=== PATIENT | female | born 2000 | race Caucasian/White ===

== ENCOUNTER 2023-05-27 21:18 | Emergency (ER) | payer OTHER, SELFPAY ==
[2023-05-27] VITALS (11 sets, daily range): BP systolic 119–143; BP diastolic 65–97; PULSE 101–108; RESP 18–20; TEMP 36.6; O2SAT 97–100
--- NOTE | 2023-05-27 21:26 | CRLHL7_ITS ---
For Patients: As a result of the Century Cures Act, medical imaging exams and procedure reports are released immediately into your electronic medical record. You may view this report before your referring provider. If you have questions, please contact your health care provider. INDICATION: Altered mental status. Hit head. Patient now nonverbal. COMPARISON: None available. TECHNIQUE: CT examination of the cervical spine is performed without contrast using spiral technique. 1.5 mm thick axial, and 2 mm thick sagittal and coronal reconstructions were made. Please note that all CT scans at this facility use dose modulation, iterative reconstruction, and/or weight-based dosing when appropriate to reduce radiation dose to as low as reasonably achievable. FINDINGS: : There is no sign of fracture or subluxation. The cervical vertebral bodies and intervertebral discs are normal in height and are in anatomic alignment. There is no sign of prevertebral soft tissue swelling. The airway structures are normal in appearance. The visualized skull base is normal in appearance. The visualized inferior brain is normal in appearance for the patient`s age. The apices of the lungs are clear. IMPRESSION: Normal CT of the cervical spine with no sign of acute injury. Please note that all CT scans at this facility use dose modulation, iterative reconstruction, and/or weight-based dosing when appropriate to reduce radiation dose to as low as reasonably achievable. Dictated by Lester Franco MD @ 05/27/2023 10:58:03 PM (Electronically Signed)
--- NOTE | 2023-05-27 21:26 | CRLHL7_ITS ---
For Patients: As a result of the Century Cures Act, medical imaging exams and procedure reports are released immediately into your electronic medical record. You may view this report before your referring provider. If you have questions, please contact your health care provider. INDICATION: Altered mental status, patient now nonverbal. Hit head. COMPARISON: None available. TECHNIQUE: CT examination of the head was performed with 3 mm thick axial and 2 mm thick coronal and sagittal sections without intravenous contrast. Images were obtained from the vertex of the skull through the skull base, and I examined the images with the brain and bone windows. Please note that all CT scans at this facility use dose modulation, iterative reconstruction, and/or weight-based dosing when appropriate to reduce radiation dose to as low as reasonably achievable. FINDINGS: : The brain is normal in appearance for the patient`s age on today`s study, with no sign of mass lesion, mass effect, hemorrhage, or edema. The ventricles and sulci are normal in appearance for the patient`s age. The visualized portions of the orbits are normal in appearance. The visualized portions of the paranasal sinuses and mastoids are clear. The osseous structures are normal in their appearance with no sign of abnormality in the skull base or calvarium. IMPRESSION: No sign of closed-head injury. Normal noncontrast CT of the head for the patient`s age. Please note that all CT scans at this facility use dose modulation, iterative reconstruction, and/or weight-based dosing when appropriate to reduce radiation dose to as low as reasonably achievable. Dictated by Lester Franco MD @ 05/27/2023 10:56:37 PM (Electronically Signed)
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
[2023-05-27] MEDS: ONDANSETRON 2 MG/ML inj 4 MG IVP (22:25)
[2023-05-27] MEDS: 0.9 % SODIUM CHLORIDE 1000 ml 1,000 ML IV (22:25)
--- NOTE | 2023-05-27 22:25 | ED.NURSE ---
Rfp Writer in room to complete assessments, start IV, and administer medications after pt returns from CT. Pt has eyes closed and does not respond to narrative writer when narrative writer addresses pt. Rfp Writer places tourniquet on pt's arm to identify vein for IV insertion. Pt starts squeezing hand to pump blood. Pt then opens eyes and states, 22. Rfp Writer confirms to pt that she is using a 22 g IV needle. Pt then goes back to limp arms and closing eyes. Pt brings up other hand and starts miming 2 with fingers in repetitive pattern, 22. Rfp Writer again states, yes, I am going to use a 22. Registration in room to confirm pt's information. Pt's father unable to provide name of pt's workplace. Pt opens eyes once again and states place of work. 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 Pt then goes back to limp arms and not responding while closing eyes. Registrar asks for pt's primary care provider. Father again unable to provide information. Pt opens eyes, states provider, and again goes limp, closing eyes. Rfp Writer asks pt if she is okay to receive Zofran medication. Pt gives narrative writer a thumbs up. Rfp Writer administers medication and starts fluids. Father and boyfriend at bedside and deny further questions or needs.
[2023-05-27 22:30] LABS: Basophils Absolute Auto 0.02 K/uL (0.00-0.30); Basophils Percent Auto 0.3 % (0.0-3.0); Eosinophils Absolute Auto 0.07 K/uL (0.00-0.50); Eosinophils Percent Auto 1.1 % (0.0-7.0); Hematocrit 38.9 % (33.0-51.0); Hemoglobin* 13.6 gm/dL (12.0-16.0); Immature Granulocytes Abs Auto 0.01 K/uL (0.00-0.30); Immature Granulocytes Pct Auto 0.2 %; Lymphocytes Absolute Auto 2.05 K/uL (0.90-2.90); Lymphocytes Percent Auto 31.4 % (20-44); Mean Corpuscular HGB Conc 35 gm/dL (32-36); Mean Corpuscular Hemoglobin 31 pg (26-34); Mean Corpuscular Volume 88 fL (80-100); Neutrophils Absolute Auto 3.92 K/uL (1.7-7.0); Platelet Count* 305 K/uL (140-440); RDW Coefficient of Variation % 11.7 % (11.5-15.5); White Blood Count* 6.53 K/uL (4.50-11.00)
[2023-05-27 22:32] LABS: Slide Review Reflex No
[2023-05-27 22:45] LABS: Albumin* 4.9 g/dL (3.3-5.0); Chloride* 105 mmol/L (96-114); Potassium* 3.4 mmol/L (3.6-5.1); Sodium* 140 mmol/L (135-149)
--- NOTE | 2023-05-27 22:45 | ED.NURSE ---
Addendum entered by Leta Gregorio RN 05/28/23 01:32: Correction: Time of note [id number] Original Note: Steam Table Attendant asking pt if she would be able to provide urine sample. Pt refusing to open eyes or acknowledge song writer.
[2023-05-27 22:47] LABS: Creatinine* 0.7 mg/dL (0.5-1.5); Estimated Glomerular Filt Rate 124 ml/min
[2023-05-27 22:48] LABS: Alanine Aminotransferase* 30 U/L (4-35); Alkaline Phosphatase* 46 U/L (40-150); Aspartate Amino Transferase* 37 U/L (12-35); Bilirubin Total* 0.4 mg/dL (0.1-1.5); Blood Urea Nitrogen* 11 mg/dL (5-24); Carbon Dioxide* 25 mmol/L (20-32); Glucose* 98 mg/dL (60-115); Total Protein* 7.9 g/dL (6.0-8.3)
[2023-05-27 22:49] LABS: Calcium* 9.2 mg/dL (8.4-10.6); Ethanol* 0.15 % (0.01-0.03)
== END 2023-05-27 23:45 | disposition home or self-care (01) ==
PROVIDERS: Emergency Provider Family Medicine
DX: F10.920 Alcohol use, unspecified with intoxication, uncomplicated (principal); S06.0X0A Concussion without loss of consciousness, initial encounter
CPT/HCPCS: 36415; 70450; 72125; 80053; 80306; 81001; 82077; 85025; 96374; 99284; 99285; J2405; J7030